=== PATIENT | female | born 1995 | race Caucasian/White ===

== ENCOUNTER 2018-07-13 09:09 | Outpatient (CLI) | payer OTHER | END 2018-07-13 09:10 | disposition home or self-care (01) | LOC: SONOGRAMA 09:09 | DX: N60.19 Diffuse cystic mastopathy of unspecified breast (principal); N63.11 Unspecified lump in the right breast, upper outer quadrant ==

== ENCOUNTER 2019-07-12 07:08 | Emergency (ER) | payer OTHER ==
[~2019-07-12] VITALS: Ht 149.9 cm; Wt 59.0 kg
[2019-07-12] MEDS ORDERED: AZELASTINE HCL6 ML OP (07:55)
[2019-07-12] MEDS ORDERED: ACETAMINOPHEN PO (07:55)
[2019-07-12] MEDS ORDERED: ALL DAY ALLERGY10 M3 PO (07:56)
[2019-07-12] MEDS ORDERED: AMOX PO (07:56)
== END 2019-07-12 15:15 | disposition home or self-care (01) ==
LOC: ER 07:08
DX: B34.9 Viral infection, unspecified (principal)

== ENCOUNTER → 2019-07-17 06:09 | Outpatient (CLI) | payer OTHER ==
[~2019-07-17 06:09] MED LIST: ACETAMINOPHEN PO; ALL DAY ALLERGY10 M3 PO; AMOX PO; AZELASTINE HCL6 ML OP
== END | disposition home or self-care (01) ==
LOC: LAB
DX: D50.0 Iron deficiency anemia secondary to blood loss (chronic) (principal); B27.90 Infectious mononucleosis, unspecified without complication; B19.9 Unspecified viral hepatitis without hepatic coma

== ENCOUNTER 2019-07-18 09:53 | Outpatient (CLI) | payer OTHER | END 2019-07-18 10:02 | disposition home or self-care (01) | LOC: LAB 09:53 | DX: D47.3 Essential (hemorrhagic) thrombocythemia (principal) ==

== ENCOUNTER 2019-07-18 16:08 | Emergency (ER) | payer OTHER ==
[~2019-07-18] VITALS: Ht 149.9 cm; Wt 59.0 kg
== END 2019-07-18 20:40 | disposition home or self-care (01) ==
LOC: ER 16:08
DX: A90 Dengue fever [classical dengue] (principal)

== ENCOUNTER → 2019-07-22 11:15 | Outpatient (CLI) | payer OTHER | END | disposition home or self-care (01) | LOC: LAB 11:15 | DX: B17.8 Other specified acute viral hepatitis (principal) ==

== ENCOUNTER 2019-08-16 07:51 | Outpatient (CLI) | payer OTHER | END 2019-08-16 13:45 | disposition home or self-care (01) | LOC: SONOGRAMA 07:51 → MAMO-SONO 09:00 → SONOGRAMA 13:45 | DX: D69.49 Other primary thrombocytopenia (principal) ==

== ENCOUNTER 2020-07-01 15:59 | Outpatient (CLI) | payer OTHER | END 2020-07-01 16:00 | disposition home or self-care (01) | LOC: LAB 15:59 | PROVIDERS: ATTEND Obstetrics & Gynecology | DX: E03.8 Other specified hypothyroidism (principal); N39.0 Urinary tract infection, site not specified; E08.22 Diabetes mellitus due to underlying condition with diabetic chronic kidney disease ==

== ENCOUNTER 2021-03-08 15:00 | Outpatient (CLI) | payer OTHER | END 2021-03-08 15:30 | disposition home or self-care (01) | LOC: PPH VACUNA 15:00 | PROVIDERS: ATTEND Emergency Medicine Pediatric Emergency Medicine | DX: Z23 Encounter for immunization (principal) ==

== ENCOUNTER 2021-03-26 09:51 | Outpatient (CLI) | payer OTHER | END 2021-03-26 10:05 | disposition home or self-care (01) | LOC: SONOGRAMA 09:51 | PROVIDERS: ATTEND Family Medicine | DX: N20.0 Calculus of kidney (principal); N39.0 Urinary tract infection, site not specified ==

== ENCOUNTER 2021-03-26 10:54 | Inpatient (IN) | payer OTHER ==
[~2021-03-26] VITALS: Ht 149.9 cm; Wt 63.5 kg
== END 2021-03-28 16:35 | disposition home or self-care (01) | DRG 690 ==
LOC: ER 10:54 → SURG 18:08
PROVIDERS: ADMIT Internal Medicine; ATTEND Internal Medicine
PROC: BW21ZZZ Computerized Tomography (CT Scan) of Abdomen and Pelvis (ICD-10-PCS; principal; 2021-03-26)
DX: N39.0 Urinary tract infection, site not specified (principal); B96.29 Other Escherichia coli [E. coli] as the cause of diseases classified elsewhere; N10 Acute pyelonephritis; Z20.822 Contact with and (suspected) exposure to COVID-19

== ENCOUNTER 2021-05-13 08:27 | Emergency (ER) | payer OTHER ==
[~2021-05-13] VITALS: Ht 149.9 cm; Wt 59.0 kg
== END 2021-05-13 13:58 | disposition home or self-care (01) ==
LOC: ER 08:27
DX: A09 Infectious gastroenteritis and colitis, unspecified (principal)

== ENCOUNTER 2024-04-23 06:23 | Outpatient (CLI) | payer OTHER | END 2024-04-23 15:41 | disposition home or self-care (01) | LOC: RAD 06:23 | PROVIDERS: ATTEND Otolaryngology | DX: J32.1 Chronic frontal sinusitis (principal) ==